=== PATIENT | male | born 1950 | race Caucasian/White ===

== ENCOUNTER 2017-02-13 01:13 | Emergency (ER) | payer BC ==
[~2017-02-13] VITALS: Ht 188 cm; Wt 167.8 kg
[2017-02-13] MEDS ORDERED: ASPIRIN81 MG PO (05:50)
[2017-02-13] MEDS ORDERED: ACTOS15 MG PO (05:51)
[2017-02-13] MEDS ORDERED: PRINIVIL5 MG PO (05:51)
[2017-02-13] MEDS ORDERED: LOPRESSOR100 MG PO (05:52)
[2017-02-13] MEDS ORDERED: RYTHMOL150 MG PO (05:52)
[2017-02-13] MEDS ORDERED: GLUCOPHAGE1000 MG PO (05:53)
[2017-02-13] MEDS ORDERED: LIPITOR20 MG PO (05:55)
[2017-02-13] MEDS ORDERED: BYDUREON P2 MG/0.65 SUBCUT (05:57)
== END 2017-02-13 02:15 | disposition short-term general hospital (02) ==
LOC: ER 01:13
DX: I48.91 Unspecified atrial fibrillation (principal); E66.9 Obesity, unspecified; E11.9 Type 2 diabetes mellitus without complications; I10 Essential (primary) hypertension; Z79.84 Long term (current) use of oral hypoglycemic drugs; Z79.899 Other long term (current) drug therapy